=== PATIENT | male | born 1990 | race American Indian/Alaskan Native ===

== ENCOUNTER 2017-02-03 18:09 | Emergency (ER) | payer MEDICAID, OTHER ==
[2017-02-03 18:36] VITALS: BP 119/57; PULSE 90; RESP 16; TEMP 100; O2SAT 98
[2017-02-03] MEDS ORDERED: Oxycodone/Acetaminophen 5/325 mg Tab ONE (18:42)
[2017-02-03] MEDS: Oxycodone/Acetaminophen 5/325 mg Tab PO STA (18:43)
--- NOTE | 2017-02-03 18:50 | ED PDOC ---
Lower Extremity Pain/Injury Time Seen by Provider: 02/03/17 18:17 Chief Complaint (Nursing): Lower Extremity Problem/Injury Chief Complaint (Provider): Right Foot Pain History Per: Patient History/Exam Limitations: no limitations Onset/Duration Of Symptoms: Other (x 2 months) Current Symptoms Are (Timing): Still Present Additional Complaint(s): Wilda is a 49 year old male who presents to the Emergency Department complaining of right foot pain that has been occurring for 2 months. Patient states he wakes up with a sore foot. Admits to playing basketball, but not always. Localized Pain. Describes it as intermittent pain and can barely walk at times. Patient did take Motrin for pain, but with no relief. Denies any recent injuries, diabetes, hypertension, or any other medical problems. PMD: Provider TBJuan Past Medical History Reviewed: Historical Data, Nursing Documentation, Vital Signs Vital Signs: Last Vital Signs Temp 100 F H 02/03/17 18:35 Pulse 90 02/03/17 18:35 Resp 16 02/03/17 18:35 BP 119/57 L 02/03/17 18:35 Pulse Ox 98 02/03/17 18:35 - Medical History PMH: No Chronic Diseases Denies: Chronic Kidney Disease - Surgical History Surgical History: No Surg Hx - Family History Family History: States: Unknown Family Hx - Social History Drugs: Denies - Immunization History Hx Tetanus Toxoid Vaccination: No Hx Influenza Vaccination: Yes Hx Pneumococcal Vaccination: Yes - Home Medications Home Medications: Ambulatory Orders Medication Instructions Recorded oxyCODONE/Acetaminophen [Percocet 1 ea PO Q6H PRN #10 tab 02/03/17 5/325 mg Tab] - Allergies Allergies/Adverse Reactions: Allergies Allergy/AdvReac Type Severity Reaction Status Date / Time No Known Allergies Allergy Verified 06/27/15 16:44 Review of Systems ROS Statement: Except As Marked, All Systems Reviewed And Found Negative Musculoskeletal: Positive for: Foot Pain (Right) Physical Exam - Reviewed Nursing Documentation Reviewed: Yes Vital Signs Reviewed: Yes - Physical Exam Appears: Positive for: Well, Non-toxic Head Exam: Positive for: ATRAUMATIC, NORMAL INSPECTION, NORMOCEPHALIC Skin: Positive for: Normal Color Eye Exam: Positive for: Normal appearance Neck: Positive for: Normal Respiratory: Negative for: Respiratory Distress Pulses-Dorsalis Pedis (R): 2+ Pulses-Post. Tibialis (R): 2+ Extremity: Positive for: Capillary Refill (less than 2 seconds), Other ( Tenderness over the proximal 5th metatarsal) Neurologic/Psych: Positive for: Alert - ECG O2 Sat by Pulse Oximetry: 98 (RA) Pulse Ox Interpretation: Normal Medical Decision Making Medical Decision Making: Time: 18:40 Plan: - Percocet 5/325 mg tab - Right Foot X-Ray x-ray nomral Scribe Attestation: Documented by Cam Vargas, acting as a scribe for Adilene Morales PA-C. Provider Scribe Attestation: All medical record entries made by the Scribe were at my direction and personally dictated by me. I have reviewed the chart and agree that the record accurately reflects my personal performance of the history, physical exam, medical decision making, and the department course for this patient. I have also personally directed, reviewed, and agree with the discharge instructions and disposition. Disposition - Clinical Impression Clinical Impression: Foot pain - Patient ED Disposition Is Patient to be Admitted: No Counseled Patient/Family Regarding: Diagnosis, Need For Followup, Rx Given - Disposition Referrals: Podiatry Clinic [Outside] Disposition: Routine/Home Disposition Time: 20:09 Condition: GOOD Additional Instructions: Please follow-up at the podiatry clinic. Prescriptions: oxyCODONE/Acetaminophen [Percocet 5/325 mg Tab] 1 ea PO Q6H PRN #10 tab PRN Reason: Pain, Severe (8-10) Instructions: Arthralgia (ED) Forms: [employer] ([place])
--- NOTE | 2017-02-04 10:17 | RAD ---
PROCEDURE: Right Foot Radiographs. HISTORY: pain 5th metatarsal without trauma. COMPARISON: None. FINDINGS: BONES: Bone alignment and mineralization are normal. There is no acute displaced fracture or bone destruction. JOINTS: The joint spaces are preserved. There is mild hallux valgus. SOFT TISSUES: Mild periarticular soft tissue swelling at the 1st MTP joint. OTHER FINDINGS: None. IMPRESSION: No acute displaced fracture, dislocation or bone destruction. Mild hallux valgus and periarticular soft tissue swelling at the 1st MTP joint.
== END 2017-02-03 20:15 | disposition home or self-care (01) ==
LOC: H.ER 18:09
DX: M79.671 Pain in right foot (principal); M20.11 Hallux valgus (acquired), right foot